=== PATIENT | male | born 1945 | race Caucasian/White ===

== ENCOUNTER 2017-02-19 10:18 | Emergency (ER) | payer OTHER, BC ==
[2017-02-19 10:37] VITALS: BP 148/74
--- NOTE | 2017-02-19 11:03 | ER Document Report ---
ED General - General Chief Complaint: Groin Pain Stated Complaint: ABDOMINAL PAIN Time Seen by Provider: 02/19/17 10:55 Mode of Arrival: Ambulatory Information source: Patient Notes: Patient states he has had a mass in his right inguinal area for "sometime". He states he can eat normally. He states his only painful if he lies down and coughs. He states he sits up and coughs it is not painful. He states it is never been firm or tender to touch. He states he has had no fevers. No nausea or vomiting. He states he went to the [facility] today to have it evaluated and they told him to come to the emergency department. He states he has had a previous hernia repaired surgically. The pain is transient. It is brief and dull. It is only with coughing. It is better with rest. There is no radiation of the pain. TRAVEL OUTSIDE OF THE [place] IN LAST 30 DAYS: No - Related Data Allergies/Adverse Reactions: No Known Allergies Allergy (Unverified 02/19/17 10:34) Past Medical History - General Information source: Patient - Social History Smoking Status: Current Every Day Smoker Chew tobacco use (# tins/day): No Frequency of alcohol use: None Drug Abuse: None Family History: Reviewed & Not Pertinent Patient has suicidal ideation: No Renal/ Medical History: Denies: Hx Peritoneal Dialysis Surgical Hx: Negative Review of Systems - Review of Systems Constitutional: denies: Chills, Fever Gastrointestinal: denies: Abdomen distended, Abdominal pain, Diarrhea, Nausea, Vomiting, Poor appetite Genitourinary: denies: Burning, Dysuria, Frequency, Hematuria Physical Exam - Vital signs Vitals: Resp 16 02/19/17 10:34 Interpretation: Normal - General General appearance: Appears well, Alert - HEENT Head: Normocephalic, Atraumatic Eyes: Normal Pupils: PERRL - Respiratory Respiratory status: No respiratory distress Chest status: Nontender Breath sounds: Normal Chest palpation: Normal - Cardiovascular Rhythm: Regular Heart sounds: Normal auscultation Murmur: No - Abdominal Inspection: Normal Distension: No distension Bowel sounds: Normal Tenderness: Nontender Organomegaly: No organomegaly - Genitourinary Scrotum: Normal - Male genital exam is unremarkable other than the right inguinal canal. Right inguinal canal does have fullness consistent with a hernia. It is easily reducible and not tender at all. There is no warmth or erythema. - Back Back: Normal, Nontender - Extremities General upper extremity: Normal inspection, Nontender, Normal color, Normal ROM , Normal temperature General lower extremity: Normal inspection, Nontender, Normal color, Normal ROM , Normal temperature, Normal weight bearing. No: Nadege's sign - Neurological Neuro grossly intact: Yes Cognition: Normal Orientation: AAOx4 Dereje Coma Scale Eye Opening: Spontaneous Points Coma Scale Verbal: Oriented Dereje Coma Scale Motor: Obeys Commands Points Coma Scale Total: 15 Speech: Normal Motor strength normal: LUE, RUE, LLE, RLE Sensory: Normal - Psychological Associated symptoms: Normal affect, Normal mood - Skin Skin Temperature: Warm Skin Moisture: Dry Skin Color: Normal Course - Vital Signs Vital signs: Temp Pulse Resp BP Pulse Ox 97.7 F 69 16 148/74 H 96 02/19/17 10:35 02/19/17 10:35 02/19/17 10:34 02/19/17 10:35 02/19/17 10:35 Discharge - Discharge Clinical Impression: Right inguinal hernia Condition: Stable Disposition: HOME, SELF-CARE Instructions: Hernia ([facility]) Referrals: YANCI DANG MD [ACTIVE STAFF] - Follow up tomorrow
== END 2017-02-19 11:10 | disposition home or self-care (01) ==
LOC: ER 10:18
DX: K40.90 Unilateral inguinal hernia, without obstruction or gangrene, not specified as recurrent (principal); R10.30 Lower abdominal pain, unspecified; F17.200 Nicotine dependence, unspecified, uncomplicated
CPT/HCPCS: 99283

== ENCOUNTER 2017-05-14 10:49 | Emergency (ER) | payer OTHER, MEDICARE, BC ==
[2017-05-14 10:55] VITALS: BP 153/80
--- NOTE | 2017-05-14 11:14 | ER Document Report ---
ED General - General Chief Complaint: Abdominal Problem Stated Complaint: POSSIBLE HERNIA Time Seen by Provider: 05/14/17 11:08 Notes: Patient presents complaining of right inguinal pain. He states it is mild and intermittent. He states he does not know when the makes it better or worse. He states it is due to his inguinal hernia. He states he can eat normally and he has no problems with urination or bowel movements. He also has no nausea or vomiting. He states the hernia does not hurt all the time to sometimes. He states he has been to the [facility] multiple times for this and has been referred here. He states that he came here today just to get help with where he should go next to get the hernia addressed. The pain does not radiate. It is a sharp pain when he has it. TRAVEL OUTSIDE OF THE [place] IN LAST 30 DAYS: No - Related Data Allergies/Adverse Reactions: No Known Allergies Allergy (Verified 05/14/17 10:52) Past Medical History - General Information source: Patient - Social History Smoking Status: Current Every Day Smoker Frequency of alcohol use: Occasional Drug Abuse: None Family History: Reviewed & Not Pertinent Renal/ Medical History: Denies: Hx Peritoneal Dialysis Review of Systems - Review of Systems Constitutional: denies: Chills, Fever Cardiovascular: denies: Chest pain, Palpitations Respiratory: denies: Cough, Short of breath Physical Exam - Vital signs Vitals: Temp Pulse Resp BP Pulse Ox 97.6 F 61 18 153/80 H 98 05/14/17 10:53 05/14/17 10:53 05/14/17 10:53 05/14/17 10:53 05/14/17 10:53 Interpretation: Hypertensive - General General appearance: Appears well, Alert - HEENT Head: Normocephalic, Atraumatic Eyes: Normal Pupils: PERRL - Respiratory Respiratory status: No respiratory distress Chest status: Nontender Breath sounds: Normal Chest palpation: Normal - Cardiovascular Rhythm: Regular Heart sounds: Normal auscultation Murmur: No - Abdominal Inspection: Normal - Patient has an easily reducible nontender right inguinal hernia. Exam is otherwise unremarkable. Distension: No distension Bowel sounds: Normal Tenderness: Nontender Organomegaly: No organomegaly - Back Back: Normal, Nontender - Extremities General upper extremity: Normal inspection, Nontender, Normal color, Normal ROM , Normal temperature General lower extremity: Normal inspection, Nontender, Normal color, Normal ROM , Normal temperature, Normal weight bearing. No: Nadege's sign - Neurological Neuro grossly intact: Yes Cognition: Normal Orientation: AAOx4 Falconer Coma Scale Eye Opening: Spontaneous Dereje Coma Scale Verbal: Oriented Dereje Coma Scale Motor: Obeys Commands Falconer Coma Scale Total: 15 Speech: Normal Motor strength normal: LUE, RUE, LLE, RLE Sensory: Normal - Psychological Associated symptoms: Normal affect, Normal mood - Skin Skin Temperature: Warm Skin Moisture: Dry Skin Color: Normal Course - Vital Signs Vital signs: Temp Pulse Resp BP Pulse Ox 97.6 F 61 18 153/80 H 98 05/14/17 10:53 05/14/17 10:53 05/14/17 10:53 05/14/17 10:53 05/14/17 10:53 Discharge - Discharge Clinical Impression: Right inguinal hernia Condition: Stable Disposition: HOME, SELF-CARE Instructions: Hernia ([facility]) Additional Instructions: Your blood pressure is elevated. Please have this rechecked within 1 week by your physician. Please call Dr. Blanco office as soon as possible to arrange for an evaluation of your inguinal hernia. Forms: Elevated Blood Pressure Referrals: YANCI BLANCO MD [ACTIVE STAFF] - Follow up tomorrow
== END 2017-05-14 11:21 | disposition home or self-care (01) ==
LOC: ER 10:49
DX: K40.90 Unilateral inguinal hernia, without obstruction or gangrene, not specified as recurrent (principal); F17.200 Nicotine dependence, unspecified, uncomplicated
CPT/HCPCS: 99283

== ENCOUNTER 2017-05-22 11:23 | Day surgery (SDC) | payer MEDICARE, BC ==
[~2017-05-22 11:23] MED LIST: CEFAZOLIN 1 GM/D5W RTU 1 GM/50 ML RTUPB IV PRN; CEFAZOLIN 2 GM/D5W RTU 2 GM/50 ML RTUPB IV PRN; RINGERS SOLUTION,LACTATED 1,000 ML IV PRN; SUCCINYLCHOLINE CHLORIDE INJ 200 MG/10 ML VIAL ONE
[2017-05-22 12:18] LABS: HEMATOCRIT 43.7 % (37.9-51.0); HEMOGLOBIN 14.9 g/dL (13.5-17.0); MEAN CORPUSCULAR HGB CONC 34.1 g/dL (32.0-36.0); MEAN CORPUSCULAR VOLUME 85 fl (80-97); PLATELET COUNT 253 10^3/uL (150-450); RED BLOOD COUNT 5.13 10^6/uL (4.35-5.55); WHITE BLOOD COUNT 5.6 10^3/uL (4.0-10.5)
[2017-05-22 12:38] LABS: ANION GAP 11 (5-19); BLOOD UREA NITROGEN 14 mg/dL (7-20); CALCIUM 9.8 mg/dL (8.4-10.2); CARBON DIOXIDE 28 mmol/L (22-30); CHLORIDE 104 mmol/L (98-107); GLUCOSE 86 mg/dL (75-110); POTASSIUM 4.1 mmol/L (3.6-5.0); SODIUM 143.2 mmol/L (137-145)
[2017-05-22] MEDS ORDERED: BUPIVACAINE HCL 0.25 % INJ/PF (2.5 MG/1 ML) 30 ML VIAL ONE (12:49)
[2017-05-22] MEDS ORDERED: MIDAZOLAM 2 MG/2 ML INJ ONE ×2 (14:26→16:06)
[2017-05-22] MEDS ORDERED: ALBUTEROL SULFATE 0.083% NEB 2.5 MG/3 ML AMPUL NEB ONE (14:27)
--- NOTE | 2017-05-22 15:11 | RADIOLOGY REPORT (SQ) ---
EXAM DESCRIPTION: CHEST SINGLE VIEW COMPLETED DATE/TIME: 05/22/2017 2:53 pm REASON FOR STUDY: preop K40.90 UNIL INGUINAL HERNIA, W/O OBST OR GANGR, NOT SPCF COMPARISON: None. NUMBER OF VIEWS: One view. TECHNIQUE: Single frontal radiographic view of the chest acquired. LIMITATIONS: None. FINDINGS: LUNGS AND PLEURA: No opacities, masses or pneumothorax. No pleural effusion. Attenuated bl ood vessels and flattened myrtle-diaphragms. MEDIASTINUM AND HILAR STRUCTURES: No masses. Contour normal. HEART AND VASCULAR STRUCTURES: Heart normal in size. Normal vasculature. BONES: No acute findings. HARDWARE: None in the chest. OTHER: No other significant finding. IMPRESSION: COPD. NO ACUTE RADIOGRAPHIC FINDING IN THE CHEST. TECHNICAL DOCUMENTATION: JOB ID: [id number]- All Rights Reserved
[2017-05-22] MEDS ORDERED: RINGERS SOLUTION,LACTATED 1,000 ML IV PRN ×2 (15:45→18:05)
[2017-05-22] MEDS ORDERED: FAMOTIDINE INJ/PF 20 MG/2 ML SDV IV ONE (16:00)
[2017-05-22] MEDS ORDERED: FENTANYL CITRATE INJ/PF 100 MCG/2 ML AMPUL ONE (16:05)
[2017-05-22] MEDS ORDERED: PROPOFOL INJ 200 MG/20 ML VIAL IV ONE (16:07)
[2017-05-22] MEDS ORDERED: ACETAMINOPHEN 100 ML IV ONE (16:07)
[2017-05-22] MEDS ORDERED: MEPERIDINE HCL/PF INJ 25 MG/1 ML DISP.SYRIN IV PRN (16:52)
[2017-05-22] MEDS ORDERED: ONDANSETRON HCL INJ/PF 4 MG/2 ML SDV IV PRN ×2 (16:52→18:05)
[2017-05-22] MEDS ORDERED: DIPHENHYDRAMINE HCL 50 MG/ML VIAL IV PRN (16:52)
[2017-05-22] MEDS ORDERED: MORPHINE SULFATE 10 MG/ML INJ IV PRN ×2 (16:52→18:05)
[2017-05-22] MEDS ORDERED: FENTANYL CITRATE INJ/PF 100 MCG/2 ML AMPUL IV PRN ×3 (16:52)
[2017-05-22] MEDS ORDERED: PROMETHAZINE HCL INJ 25 MG/1 ML VIAL IV PRN (16:52)
[2017-05-22] MEDS ORDERED: NALOXONE HCL INJ/PF 0.4 MG/1 ML SDV ONE (17:48)
--- NOTE | 2017-05-22 17:58 | Operative Report ---
Operative Report DATE OF SURGERY: 05/22/17 PREOPERATIVE DIAGNOSIS: Right inguinal hernia POSTOPERATIVE DIAGNOSIS: Right direct inguinal hernia OPERATION: Right inguinal hernia repair with mesh SURGEON: FRANCISCA LEMUS ANESTHESIA: GA TISSUE REMOVED OR ALTERED: Cord lipoma COMPLICATIONS: None ESTIMATED BLOOD LOSS: Minimal INTRAOPERATIVE FINDINGS: Right-sided direct inguinal hernia. Small cord lipoma. PROCEDURE: Informed consent was obtained. Patient was brought to the operating room placed on the operating room table in the supine position. After satisfactory induction of general anesthesia, patient's right groin was prepped and draped in usual sterile fashion. A transverse right groin incision was made. Dissection was carried down and the external oblique was opened along its fascial fibers thus opening the external inguinal ring. The cord was mobilized at the pubic tubercle. The ilioinguinal nerve had an aberrant course and would have been in the way of the repair, therefore it was taken by clamping dividing and tying and injecting it with local. Dissection at the anterior aspect of the cord revealed a cord lipoma which was resected but there was no associated indirect inguinal hernia. Dissection revealed a direct inguinal hernia which was dissected free from the surrounding tissue and tucked back into the preperitoneal space with interrupting mattressing sutures. Mesh repair was performed with [employer] pro-waste oil pumper mesh. The sling ends were brought back together in a sling-like configuration thus re-creating the internal inguinal ring. The mesh laid flat with excellent coverage. A single fixation suture was placed at the pubic tubercle. Hemostasis appeared excellent. Marcaine was injected. The external oblique was closed over the repair and the cord structures using running Vicryl suture. Tequila's fascia was closed with interrupted Vicryl sutures. Skin was closed with subcuticular running Monocryl suture. Patient tolerated procedure well with no apparent complications and was taken to the recovery area in stable condition.
--- NOTE | 2017-05-22 18:03 | PDOC DISCHARGE SUMMARY ---
Discharge Summary (SDC) - Discharge Final Diagnosis: Right inguinal hernia Date of Surgery: 05/22/17 Discharge Date: 05/22/17 Condition: Good Treatment or Instructions: Right inguinal hernia repair with mesh. May discharge patient home when met discharge criteria. Follow-up with me in 2 weeks. Stay active but avoid strenuous activity. May shower in 2 days. Prescriptions: Oxycodone HCl/Acetaminophen [Percocet 5-325 mg Tablet] 1 tab PO ASDIR PRN #25 tablet PRN Reason: Discharge Diet: As Tolerated Discharge Activity: Activity As Tolerated - Stay active but avoid strenuous activity. Report the Following to Your Physician Immediately: Fever over 101 Degrees, Unusual Bleeding, Redness, Drainage-Foul Smelling
[2017-05-22] MEDS ORDERED: OXYCODONE-ACETAMINOPHEN 5-325 MG TABLET PO PRN (18:05)
--- NOTE | 2017-05-22 18:28 | PDOC PROGRESS REPORT ---
Subjective Progress Note for:: 05/22/17 Subjective:: Comfortable. no complaints. Awake Reason For Visit: K40.90 UNIL INGUINAL HERNIA, W/O OBST OR GANGR, NO Physical Exam Vital Signs: Temp Pulse Resp BP Pulse Ox 97.5 F 78 16 120/61 96 05/22/17 17:57 05/22/17 18:07 05/22/17 18:07 05/22/17 18:07 05/22/17 18:07 Intake & Output 05/21/17 05/22/17 05/23/17 06:59 06:59 06:59 Intake Total 800 Output Total 5 Balance 795 Weight 56.699 kg 62.6 kg General appearance: PRESENT: no acute distress Respiratory exam: PRESENT: clear to auscultation gab Cardiovascular exam: PRESENT: RRR Gentrourinary exam: PRESENT: other - Groin wound clean dry and intact with no swelling. Psychiatric exam: PRESENT: appropriate affect Results Laboratory Results: 05/22/17 11:42 05/22/17 11:42 05/22/17 05/22/17 11:42 11:42 WBC 5.6 RBC 5.13 Hgb 14.9 Hct 43.7 MCV 85 MCH 29.0 MCHC 34.1 RDW 15.0 H Plt Count 253 Sodium 143.2 Potassium 4.1 Chloride 104 Carbon Dioxide 28 Anion Gap 11 BUN 14 Creatinine 0.81 Est GFR ( Amer) > 60 Est GFR (Non-Af Amer) > 60 Glucose 86 Calcium 9.8 Impressions: Chest X-Ray 05/22/17 00:00 IMPRESSION: COPD. NO ACUTE RADIOGRAPHIC FINDING IN THE CHEST. Assessment & Plan - Diagnosis (1) Right inguinal hernia Is this a current diagnosis for this admission?: Yes Plan: Status post right inguinal hernia repair with mesh. Patient looks good. Will discharge patient home once he meets discharge criteria.
--- NOTE | 2017-05-22 20:23 | EKG REPORT ---
SEVERITY:- BORDERLINE ECG - SINUS RHYTHM RIGHT AXIS DEVIATION BORDERLINE T ABNORMALITIES, LATERAL LEADS LVH : Confirmed by: Remingtno Echavarria 22-May-2017 20:21:32
[2017-05-22] MEDS ORDERED: INFLUENZA ADLT QUAD (36MOS+) 2017-18 VAC 0.5 ML SYR IM PRN (21:18)
[2017-05-22 22:10] VITALS: BP 122/58
== END 2017-05-22 23:00 | disposition home or self-care (01) ==
LOC: OROUT 11:23 → 2N 21:10 → OROUT 23:00
PROVIDERS: ATTEND Surgery
PROC: 0YU50JZ Supplement Right Inguinal Region with Synthetic Substitute, Open Approach (ICD-10-PCS; principal; 2017-05-22 14:00)
DX: D17.6 Benign lipomatous neoplasm of spermatic cord (principal); K40.90 Unilateral inguinal hernia, without obstruction or gangrene, not specified as recurrent; Z23 Encounter for immunization; B02.29 Other postherpetic nervous system involvement; F17.210 Nicotine dependence, cigarettes, uncomplicated
CPT/HCPCS: 36415; 85027; 80048; 88304 ×2; 71045; 90686; 93005; 93010; 90471; 49505; C1781; J2250; J0690; J3010; J2310; J0330; J2704; A9270; J0131; 830